=== PATIENT | female | born 1970 | race Caucasian/White ===

== ENCOUNTER 2020-07-06 08:23 | Inpatient (IN) | payer BC ==
[2020-07-07] MEDS ORDERED: cefOXitin 2 GM Vial ONE (06:47)
[2020-07-07] MEDS ORDERED: Ondansetron 4 MG/2 ML SDV ONE (07:53)
[2020-07-07] MEDS ORDERED: Glycopyrrolate 0.2 MG/ML 5 ML MDV ONE (07:53)
[2020-07-07] MEDS ORDERED: Neostigmine Methylsulfate 1 MG/ML 5 ML Syringe ONE (07:53)
[2020-07-07] MEDS ORDERED: Rocuronium 50 MG/5 ML Vial ONE (07:53)
[2020-07-07] MEDS ORDERED: fentaNYL 250 MCG/5 ML SDV ONE ×2 (07:53→12:39)
[2020-07-07] MEDS ORDERED: Dexamethasone 4 MG/ML SDV ONE (07:53)
[2020-07-07] MEDS ORDERED: Propofol 200 MG/20 ML SDV ONE (07:53)
[2020-07-07] MEDS ORDERED: Succinylcholine 200 MG/10 ML MDV ONE (07:53)
[2020-07-07] MEDS ORDERED: Lactated Ringers 1,000 ML ONE (07:56)
[2020-07-07] MEDS ORDERED: Gabapentin 300 MG Cap PO ONE (09:15)
[2020-07-07] MEDS ORDERED: Celecoxib 200 MG Cap PO ONE (09:15)
[2020-07-07] MEDS ORDERED: Acetaminophen 500 MG Tab PO ONE (09:15)
[2020-07-07] MEDS ORDERED: Scopolamine 1.5 MG Transdermal Patch TOP ONE (09:15)
[2020-07-07] MEDS ORDERED: Dextrose 5%-Lactated Ringers 1,000 ML IV SCH (09:30)
[2020-07-07] MEDS ORDERED: cefOXitin 2 GM in Sodium Chloride 0.9% 50 ML IV ONE (11:00)
[2020-07-07] MEDS ORDERED: Magnesium Sulfate 3.5 GM in Sodium Chloride 0.9% 100 ML IV SCH (11:30)
[2020-07-07] MEDS ORDERED: Magnesium Sulfate 5.5 GM in Sodium Chloride 0.9% 250 ML IV ONE (11:30)
[2020-07-07] MEDS ORDERED: Ketamine 500 MG/5 ML MDV IV SCH (11:30)
[2020-07-07] MEDS ORDERED: Ketamine 50 MG in Sodium Chloride 0.9% 49.5 ML IV SCH (11:30)
[2020-07-07] MEDS ORDERED: Labetalol 20 MG/4 ML Syringe ONE (13:27)
[2020-07-07] MEDS ORDERED: Ondansetron 4 MG/2 ML SDV IVPUSH ONE (14:31)
[2020-07-07] MEDS: Dextrose 5%-Lactated Ringers 1,000 ML IV SCH ×2 (16:15→23:21)
[2020-07-07] MEDS ORDERED: ALPRAZolam 0.5 MG Tab PO PRN (16:20)
[2020-07-07] MEDS ORDERED: Calcium Gluconate 10% 1 GM/10 ML SDV IVPUSH PRN (17:00)
[2020-07-07] MEDS ORDERED: Acetaminophen 500 MG Tab PO PRN (17:00)
[2020-07-07] MEDS ORDERED: HYDROmorphone 1 MG/ML Syringe IV PRN (17:00)
[2020-07-07] MEDS ORDERED: oxyCODONE 5 MG Tab PO PRN (17:00)
[2020-07-07] MEDS ORDERED: HYDROmorphone 0.5 MG/0.5 ML Syringe IVPUSH PRN (17:00)
[2020-07-07] MEDS ORDERED: diphenhydrAMINE 50 MG/ML SDV IVPUSH PRN (17:00)
[2020-07-07] MEDS ORDERED: Labetalol 20 MG/4 ML Syringe IVPUSH PRN (17:00)
[2020-07-07] MEDS: Ondansetron 4 MG/2 ML SDV IVPUSH PRN (17:27)
[2020-07-07] MEDS: cefOXitin 2 GM in Sodium Chloride 0.9% 50 ML IV SCH ×2 (17:34→23:19)
[2020-07-07] MEDS: MVI, Adult with Vitamin K 10 ML, Thiamine 200 MG, Chromium/Copper/Mang/Selen/Zn 1 ML in... IV SCH ×4 (17:35)
[2020-07-07] MEDS ORDERED: Pantoprazole 40 MG Vial IVPUSH SCH (18:00)
[2020-07-07] MEDS: Metoclopramide 10 MG/2 ML SDV IVPUSH PRN (20:21)
[2020-07-07] MEDS: Acetaminophen 500 MG Tab PO SCH (20:25)
[2020-07-07] MEDS: Heparin Sodium 5,000 Units/ML Vial SUBCUT SCH (20:25)
[2020-07-07] MEDS: Gabapentin 300 MG Cap PO SCH (20:25)
[2020-07-07] MEDS: Cyclobenzaprine 10 MG Tab PO PRN (23:19)
[2020-07-08] MEDS: Acetaminophen 500 MG Tab PO SCH ×3 (04:07→20:17)
[2020-07-08] MEDS: Ondansetron 4 MG/2 ML SDV IVPUSH PRN ×2 (04:13→20:25)
[2020-07-08] MEDS: Dextrose 5%-Lactated Ringers 1,000 ML IV SCH (05:55)
[2020-07-08] MEDS: cefOXitin 2 GM in Sodium Chloride 0.9% 50 ML IV SCH ×3 (05:55→17:16)
[2020-07-08] MEDS ORDERED: hydrOXYzine HCl 25 MG Tab PO PRN (06:53)
[2020-07-08] MEDS ORDERED: Dextrose 5%-Lactated Ringers 1,000 ML IV SCH (07:00)
[2020-07-08] MEDS: Heparin Sodium 5,000 Units/ML Vial SUBCUT SCH ×2 (07:26→20:17)
[2020-07-08] MEDS: Celecoxib 200 MG Cap PO SCH ×2 (08:48→20:16)
[2020-07-08] MEDS: Lisinopril 20 MG Tab PO SCH (08:48)
[2020-07-08] MEDS: Fluconazole 150 MG Tab PO SCH (08:51)
[2020-07-08] MEDS: SCOPOLAMINE PATCH CHECK TOP SCH (08:51)
[2020-07-08] MEDS: hydrOXYzine HCL 100 MG/2 ML SDV IM PRN (09:15)
--- NOTE | 2020-07-08 09:45 | CR ---
[facility] HISTORY: Postbariatric surgery FINDINGS: Patient swallowed water-soluble contrast. Upright views of the abdomen show no evidence of extravasation or obstruction. There is a surgical drain in the left upper quadrant. IMPRESSION: Status post bariatric surgery No extravasation or obstruction seen
--- NOTE | 2020-07-08 09:51 | PN ---
DATE OF SERVICE: 07/08/2020 SUBJECTIVE: Mela is postoperative day #1 from a Marlene-en-Y gastric bypass surgery. Upper GI showed some pooling of blood at the anastomosis, otherwise, was negative. She has had two episodes of nausea during the night, was given Zofran and Reglan. Currently, she is sitting up in the chair. States pain is controlled. Has been ambulating, voiding without difficulty. Vital signs have been stable. REVIEW OF SYSTEMS: Remainder of review of systems negative for any pertinent positives and negatives. OBJECTIVE: GENERAL: Mela is a pleasant 49-year-old female. VITAL SIGNS: TPR at 0400; 97.7, 86, 16, and blood pressure 124/63. HEENT: Negative. NECK: Supple. HEART: Regular rate and rhythm. LUNGS: Clear. ABDOMEN: Dressings dry and intact. Abdominal binder is on. MANOJ drain intact draining a light pink drainage of 90 mL in the past 24 hours. EXTREMITIES: Without peripheral edema. ASSESSMENT: 1. Laparoscopic Marlene-en-Y gastric bypass surgery. 2. Liver biopsy. 3. Diaphragmatic hernia. 4. Excision of mediastinal lipoma. 5. Partial gastrectomy. Date of procedure 07/08/2020. Surgeon: Kennedy Suárez MD. PLAN: 1. Decrease IV to 100 mL/hour. 2. Instructed to sit up with eating to avoid adequate emptying. 3. Step 2 gastric bypass diet with no cereal. 4. May shower. 5. Atarax 25 mg every 4 hours p.r.n. pain in addition to the energy protocol. 6. Zofran ODT 4 mg every 4 hours sublingual p.r.n. nausea. 7. Communication order written 3 med cups one q. 20 minutes and record at bedside, to assure adequate fluid intake. 8. Continue ambulation and use of incentive spirometer. 9. We will evaluate p.r.n. or in a.m. Pao Blanchard PA-C /[id number]
[2020-07-08] MEDS: Cyclobenzaprine 10 MG Tab PO PRN (11:46)
[2020-07-08] MEDS: MVI, Adult with Vitamin K 10 ML, Thiamine 200 MG, Chromium/Copper/Mang/Selen/Zn 1 ML in... IV SCH ×4 (16:46)
[2020-07-08] MEDS: Pantoprazole 40 MG Delayed-Release Granules 1 Packet PO SCH (16:49)
[2020-07-08] MEDS: Gabapentin 300 MG Cap PO SCH (20:16)
[2020-07-09] MEDS: Acetaminophen 500 MG Tab PO SCH ×3 (05:06→20:49)
[2020-07-09] MEDS ORDERED: Dextrose 5%-Lactated Ringers 1,000 ML IV SCH (08:00)
[2020-07-09] MEDS ORDERED: Cyanocobalamin (Vitamin B12) 1,000 MCG/ML SDV IM ONE (09:00)
[2020-07-09] MEDS: hydrOXYzine HCL 100 MG/2 ML SDV IM PRN (09:18)
[2020-07-09] MEDS: Cyclobenzaprine 10 MG Tab PO PRN (09:18)
[2020-07-09] MEDS: Ondansetron 4 MG Tab.DIS PO PRN ×2 (09:18→21:12)
[2020-07-09] MEDS: Heparin Sodium 5,000 Units/ML Vial SUBCUT SCH ×2 (09:18→20:49)
[2020-07-09] MEDS: Fluconazole 150 MG Tab PO SCH (09:19)
[2020-07-09] MEDS: Celecoxib 200 MG Cap PO SCH ×3 (09:19→20:49)
[2020-07-09] MEDS: SCOPOLAMINE PATCH CHECK TOP SCH (09:19)
[2020-07-09] MEDS: Lisinopril 20 MG Tab PO SCH (09:20)
[2020-07-09] MEDS: Metoclopramide 10 MG/2 ML SDV IVPUSH PRN (11:36)
[2020-07-09] MEDS ORDERED: Ketorolac 60 MG/2 ML SDV IM ONE (11:44)
[2020-07-09] MEDS: Pantoprazole 40 MG Delayed-Release Granules 1 Packet PO SCH (15:46)
[2020-07-09] MEDS ORDERED: Ketorolac 60 MG/2 ML SDV IM PRN (18:00)
[2020-07-09] MEDS: Gabapentin 300 MG Cap PO SCH (20:49)
[2020-07-10] MEDS: Acetaminophen 500 MG Tab PO SCH (03:25)
[2020-07-10] MEDS: Ondansetron 4 MG Tab.DIS PO PRN (08:31)
[2020-07-10] MEDS: Celecoxib 200 MG Cap PO SCH (08:33)
[2020-07-10] MEDS: Lisinopril 20 MG Tab PO SCH (08:33)
[2020-07-10] MEDS: Heparin Sodium 5,000 Units/ML Vial SUBCUT SCH (08:36)
[2020-07-10] MEDS ORDERED: Scopolamine 1.5 MG Transdermal Patch TOP ONE (09:00)
[2020-07-10] MEDS ORDERED: Magnesium Hydroxide 400 MG/5 ML Susp 30 ML Cup PO ONE (09:00)
--- NOTE | 2020-07-13 07:50 | PN ---
DATE OF SERVICE: 07/09/2020 The patient has been afebrile with stable vital signs. Oral intake is still a little bit difficult, but it is improving. We will keep her around one more day increased amount of protein. We will try 3 different flavors so she can pick and choose which she wants to purchase following discharge. I will back her down on the IV rate somewhat and maximize activity and work with pulmonary toilet. Kennedy Suárez MD /[id number]
--- NOTE | 2020-07-13 08:53 | DISCH ---
FINAL DIAGNOSES: 1. Morbid obesity. 2. Marked hepatomegaly. 3. Paraesophageal diaphragmatic hernia. 4. Mediastinal lipoma. 5. Marlene-en-Y gastric bypass with stomach becoming ischemic after formation of gastric pouch. SECONDARY DIAGNOSES: 1. Anxiety. 2. Hypertension. 3. History of interstitial cystitis. 4. Nephrolithiasis. 5. History of panic disorder. OPERATIVE PROCEDURES: Done on of 07/07; diagnostic laparoscopy with; 1. Laparoscopic Marlene-en-Y gastric bypass along with gastroenterostomy. 2. Jamel-Cut needle liver biopsy. 3. Repair of paraesophageal diaphragmatic hernia. 4. Excision of mediastinal lipoma. 5. Partial gastrectomy. SUMMARY: This is a 49-year-old female presenting with longstanding morbid obesity, increasing significant associated comorbidities. Had preop evaluation and discussion, she wished to proceed with a gastric bypass procedure. It was done on the date of admission. Her gastrojejunostomy appeared to be somewhat tight on 1st postoperative day, but she has been able to maintain adequate oral intake, maintaining a liquid diet which should be on even without being tight. At this point, pain was controlled with gabapentin and Celebrex only, not requiring Tylenol. She will be discharged home with followup with Pao Blanchard at [facility] on 07/17/2020 at 10:00 a.m.. She will be continuing her home medications which included gabapentin and Celebrex preoperatively. /[id number]
--- NOTE | 2020-07-16 08:26 | OR ---
DATE OF PROCEDURE: 07/07/2020 SURGEON: Kennedy Suárez MD PREOPERATIVE DIAGNOSIS: Morbid obesity. POSTOPERATIVE DIAGNOSES: 1. Morbid obesity. 2. Marked hepatomegaly. 3. Paraesophageal diaphragmatic hernia. 4. Mediastinal lipoma. 5. Area of bypassed stomach rendered ischemic status post formation of gastric pouch. OPERATIVE PROCEDURES: Diagnostic laparoscopy with: 1. Laparoscopic Marlene-en-Y gastric bypass along with gastroenterostomy (18426). 2. Jamel-Cut needle liver biopsy (26397). 3. Repair of paraesophageal diaphragmatic hernia (02460). 4. Excision of mediastinal lipoma (97112). 5. Partial gastrectomy (27285). ANESTHESIA: General. BIT AND SHANK DEPARTMENT SUPERVISOR: Pao Blanchard PA-C INDICATIONS FOR PROCEDURE: This is a 49-year-old female presenting with longstanding morbid obesity and increasingly significant comorbidities. After preoperative evaluation and discussion, she wished to proceed with a gastric bypass procedure. Potential risks of the procedure including bleeding, infection, leaks from various GI tract closures, problems with bowel obstruction over time, as well as possibility of cardiopulmonary, septic, or hemorrhagic complications leading to were discussed, and the patient wishes to proceed. DETAILS OF PROCEDURE: The patient was taken to the operating room. After general endotracheal anesthesia was administered, placed in a lithotomy position and the abdomen prepped and draped. 15 cm inferior and 5 cm left of the xiphoid process, a transverse incision was made and peritoneal cavity entered under direct vision with an Optiview trocar, inflated to 15 mmHg pressure of CO2. Laparoscope was reinserted. No underlying trocar insertion site injuries were seen. Bilateral transverse abdominis plane blocks were placed following which 5 additional trocars were placed across the upper and mid abdomen. The patient was noted to have marked hepatomegaly with the liver being roughly 2 to 3 times normal size and grossly fat infiltrated. Jamel-Cut needle biopsy obtained from left lobe of liver. Minimal bleeding from the biopsy sites was controlled with electrocautery. The omentum was then divided in the midline up to the level of the transverse colon. This allowed identification of the small bowel to the ligament of Treitz. Small bowel was then traced out 100 cm distal to that point where it was divided transversely with a BETSEY stapler. Small bowel was then traced out an additional 150 cm where the [id number] enteroenterostomy was accomplished with an internal firing of the Endo BETSEY 60 mm stapler. Common opening was then closed transversely with the same stapler. Angles anastomosed and mesenteric defect approximated with some 0 Ethibond stitch along with some fibrin sealant. The Marlene limb was then from the mesentery for a few centimeters, which allowed an antecolic position of the Marlene limb up to the level of esophagogastric junction without tension. The liver was then retracted anteriorly. The patient was noted to have moderate-sized paraesophageal diaphragmatic hernia with prolapse of perigastric fat and gastric fundus in a plane anterior to the course of the esophagus. This was then reduced. The peritoneum overlying incised and reflected downward. During the course of dissection, a mediastinal lipoma was encountered, and to facilitate more adequate crural repair, this was resected and crural repair was accomplished with 0 Ethibond sutures, reinforced with PTFE pledgets. The gastrointestinal balloon catheter was inflated to 15 mL and pulled up snugly against EG junction. This gastric wall over the apex of the balloon was then marked with electrocautery. Balloon catheter was deflated and pulled up from the esophagus. The lesser omental tissue adjacent to the gastric cardia was then incised allowing dissection behind the stomach at that level, and at the level of the cauterize myra, pouch was initiated with transverse firing of the BETSEY stapler. The pouch was then completed with additional firings of BETSEY stapler up to and through the angle of His. Upon completion of the pouch, the upper aspect of the bypassed stomach was noted to be somewhat ischemic appearance, and this was resected just to avoid any complications in that area. The anvil of a 25 mm EEA stapler was then attached to Power sump type tube. The latter was brought down through the mouth and taken out a small opening in the gastric pouch, allowing the anvil likewise to be pulled down to within the gastric pouch. The divided end of the Marlene limb was then opened and main body of the EEA stapler passed several centimeters into the lumen of small bowel and brought up the anvil, united with it, thus creating the gastrojejunostomy. Upon removal of stapler, double donuts of mucosa were noted within it, and small bowel was closed off with a vascular staple line. Gastrojejunostomy was reinforced with some 3-0 Vicryl seromuscular stitch along with fibrin sealant. A leak test was accomplished with injection of 120 mL of air in the gastric pouch while it was submerged with a cefoxitin-containing saline solution. No leaks were identified. A single Graham- Olivas drain was taken out through the left lateral trocar site and positioned adjacent to the gastric cardia and from there up into the splenic fossa. The trocars were sequentially removed and the peritoneal cavity deflated. Incisions were closed with some 4-0 Vicryl skin stitch, which was also used to fix the drain. The patient was taken to the recovery room in satisfactory condition. Physician physical therapy assistant, Pao Blanchard, played an essential role in assisting in this case, helping to position the patient, retract structures as needed, as well as suturing and cutting sutures when indicated. Her presence improved patient safety and decreased the operative time. Kennedy Suárez MD /[id number]
== END 2020-07-10 10:40 | disposition home or self-care (01) | DRG 403 ==
LOC: JP.SDSSCHI 07-07 08:38 → JP.SDS 07-07 08:38 → EDSTATUS 07-07 09:45 → JP.MS 07-07 12:35
PROVIDERS: ADMIT Surgery; ATTEND Surgery
PROC: 0D164ZA Bypass Stomach to Jejunum, Percutaneous Endoscopic Approach (ICD-10-PCS; principal; 2020-07-08)
PROC: 0FB24ZX Excision of Left Lobe Liver, Percutaneous Endoscopic Approach, Diagnostic (ICD-10-PCS; 2020-07-08)
PROC: 0BQT4ZZ Repair Diaphragm, Percutaneous Endoscopic Approach (ICD-10-PCS; 2020-07-08)
PROC: 0JB63ZZ Excision of Chest Subcutaneous Tissue and Fascia, Percutaneous Approach (ICD-10-PCS; 2020-07-08)
PROC: 0DB64ZZ Excision of Stomach, Percutaneous Endoscopic Approach (ICD-10-PCS; 2020-07-08)
DX: E66.01 Morbid (severe) obesity due to excess calories (principal); N76.1 Subacute and chronic vaginitis; F41.9 Anxiety disorder, unspecified; I10 Essential (primary) hypertension; R16.0 Hepatomegaly, not elsewhere classified; K44.9 Diaphragmatic hernia without obstruction or gangrene; D17.4 Benign lipomatous neoplasm of intrathoracic organs; E78.5 Hyperlipidemia, unspecified; Z98.84 Bariatric surgery status; Z98.51 Tubal ligation status; Z79.899 Other long term (current) drug therapy; Z88.8 Allergy status to other drugs, medicaments and biological substances; N30.21 Other chronic cystitis with hematuria; F33.9 Major depressive disorder, recurrent, unspecified; G24.3 Spasmodic torticollis; Z68.41 Body mass index [BMI] 40.0-44.9, adult
CPT/HCPCS: 36415; 74240; 74240-26; 80053; 83735; 84100; 85027; 86850; 86900; 86901; 88304; 88305; 88307; 88313; 94762; A9270-GY; C9113; J0171; J0330; J0694; J1100; J1170; J1644; J1885; J2405; J2704; J2710; J2765; J2795; J3010; J3410; J3411; J3420; J3475; J3490; J7050; J7120; J7121

== ENCOUNTER 2020-08-13 07:24 | Day surgery (SDC) | payer BC ==
[2020-08-13] MEDS ORDERED: Propofol 200 MG/20 ML SDV ONE (07:43)
[2020-08-13] MEDS ORDERED: fentaNYL 100 MCG/2 ML SDV ONE (07:43)
[2020-08-13] MEDS ORDERED: Midazolam 1 MG/ML 2 ML SDV ONE (07:43)
[2020-08-13] MEDS ORDERED: Cyanocobalamin (Vitamin B12) 1,000 MCG/ML SDV IM ONE (07:45)
[2020-08-13] MEDS ORDERED: Lactated Ringers 1,000 ML IV SCH (08:30)
[2020-08-13] MEDS ORDERED: MVI, Adult with Vitamin K 10 ML, Thiamine 200 MG, Zinc/Copper/Manganese/Selenium 1 ML i... IV ONE ×4 (08:30)
[2020-08-13] MEDS ORDERED: Glycopyrrolate 0.2 MG/ML 2 ML SDV IVPUSH ONE (09:00)
[2020-08-13] MEDS ORDERED: THIAMINE IV ONE (09:30)
[2020-08-13] MEDS ORDERED: LACTATED RINGERS IV ONE (09:30)
[2020-08-13] MEDS ORDERED: SELENIUM IV ONE (09:30)
[2020-08-13] MEDS ORDERED: MANGANESE IV ONE (09:30)
[2020-08-13] MEDS ORDERED: COPPER IV ONE (09:30)
[2020-08-13] MEDS ORDERED: ZINC IV ONE (09:30)
[2020-08-13] MEDS ORDERED: Ondansetron 4 MG/2 ML SDV ONE (09:32)
[2020-08-13] MEDS ORDERED: Pantoprazole 40 MG Vial IVPUSH ONE (10:00)
--- NOTE | 2020-08-28 16:11 | OR ---
DATE OF PROCEDURE: 08/13/2020 SURGEON: Kennedy Suárez MD PREOPERATIVE DIAGNOSIS: Probable strictured gastrojejunostomy. POSTOPERATIVE DIAGNOSIS: Moderately tight stricture at gastrojejunostomy. OPERATIVE PROCEDURE: Upper GI endoscopy with dilation of gastrojejunostomy (56205). ANESTHESIA: IV sedation. INDICATION FOR PROCEDURE: The patient is status post Marlene-en-Y gastric bypass on 07/06/2020, presenting with some symptoms suggestive of stricturing at her gastrojejunostomy. Plan is to proceed with upper GI endoscopy with dilation as indicated. Potential risks including bleeding and perforation were discussed, and the patient wishes to proceed. DETAILS OF PROCEDURE: The patient was taken to the operating room and placed in a left lateral decubitus position. IV sedation was administered, after which the upper GI endoscope was passed orally through the length of esophagus and into the gastric pouch. At that level, the patient was noted to have moderately tight stricture of the gastrojejunostomy with estimated diameter of around 8 mm. Bard gastrointestinal catheter was then centered across the anastomosis and inflated to 36-Sinhala size. This was held in position for 1 minute, after which balloon catheter was deflated and withdrawn. Scope was easily passed through the anastomosis at this point and no complications were evident. Eventually the scope was withdrawn and the procedure was then concluded. The patient has fair bit of inflammation in the mucosa of the gastric pouch and gastrojejunostomy. Given this, she will be given Protonix 40 mg IV in the recovery room and then given a 30-day course of oral Protonix. She will be following up with Pao Blanchard in roughly 1 month and is instructed to call should she develop symptoms of recurrent stricturing prior to that appointment. Kennedy Suárez MD /[id number]
== END 2020-08-13 11:45 | disposition home or self-care (01) ==
LOC: JP.SDS 07:24
PROVIDERS: ATTEND Surgery
DX: K91.89 Other postprocedural complications and disorders of digestive system (principal); K31.89 Other diseases of stomach and duodenum; I10 Essential (primary) hypertension; E78.5 Hyperlipidemia, unspecified; E66.01 Morbid (severe) obesity due to excess calories; Z01.812 Encounter for preprocedural laboratory examination; Z20.828 Contact with and (suspected) exposure to other viral communicable diseases; Z98.84 Bariatric surgery status; Z68.36 Body mass index [BMI] 36.0-36.9, adult
CPT/HCPCS: 43245; 87635; C9113; J2250; J2405; J2704; J3010; J3411; J3420; J3490; J7120; U0002

== ENCOUNTER 2020-10-23 09:35 | Day surgery (SDC) | payer BC ==
[~2020-10-23 09:35] MED LIST: MVI, Adult with Vitamin K 10 ML, Thiamine 200 MG, Chromium/Copper/Mang/Selen/Zn 1 ML in... IV ONE
[2020-10-23] MEDS ORDERED: Lactated Ringers 1,000 ML IV SCH (10:00)
[2020-10-23] MEDS ORDERED: Cyanocobalamin (Vitamin B12) 1,000 MCG/ML SDV IM ONE (10:00)
[2020-10-23] MEDS ORDERED: Glycopyrrolate 0.2 MG/ML 2 ML SDV IVPUSH ONE (10:00)
[2020-10-23] MEDS ORDERED: fentaNYL 100 MCG/2 ML SDV ONE (10:41)
[2020-10-23] MEDS ORDERED: Midazolam 1 MG/ML 2 ML SDV ONE (10:41)
[2020-10-23] MEDS ORDERED: Propofol 200 MG/20 ML SDV ONE (10:41)
[2020-10-23] MEDS ORDERED: MVI, Adult with Vitamin K 10 ML, Thiamine 200 MG, Chromium/Copper/Mang/Selen/Zn 1 ML in... IV ONE ×4 (11:00)
--- NOTE | 2020-11-03 12:05 | OR ---
DATE OF PROCEDURE: 10/23/2020 SURGEON: Kennedy Suárez MD PREOPERATIVE DIAGNOSIS: Probable stricture at the gastrojejunostomy. POSTOPERATIVE DIAGNOSIS: Minimal stricture at gastrojejunostomy. OPERATIVE PROCEDURE: Upper GI endoscopy with dilation of gastrojejunostomy (17237). ANESTHESIA: IV sedation. INDICATION FOR PROCEDURE: The patient is status post Marlene-en-Y gastric bypass on 07/07/2020. She underwent previous dilation of gastrojejunostomy on 08/13/2020, now presenting with some dysphagia referable to the area of the gastrojejunostomy suspicious for a stricture at that level. Plan is to proceed with upper GI endoscopy with dilation as indicated. Potential risks including bleeding and perforation were discussed, and the patient wishes to proceed. DETAILS OF PROCEDURE: The patient was taken to the operating room and placed in a left lateral decubitus position. IV sedation was administered, after which the upper GI endoscope was passed orally through the length of the esophagus and into the gastric pouch, and from there through the gastrojejunostomy. Roughly 20 cm into the lumen, where patient was noted to have minimal inflammation at the gastrojejunostomy gastric pouch at this point with only very minimal stricture with the scope being easily passed through the anastomosis. Bard gastrointestinal catheter was then centered across the anastomosis, inflated with 54- Occitan size. This was held in position for 1 minute, after which balloon catheter was deflated and withdrawn. There was a small amount of heme around the dilation point indicating a small amount of dilation had occurred, but otherwise there were no evident complications and the procedure was then concluded. The patient was taken to the recovery room in satisfactory condition. Kennedy Suárez MD /[id number]
== END 2020-10-23 14:06 | disposition home or self-care (01) ==
LOC: JP.SDS 09:35
PROVIDERS: ATTEND Surgery
DX: K91.89 Other postprocedural complications and disorders of digestive system (principal); K31.89 Other diseases of stomach and duodenum; R13.10 Dysphagia, unspecified; E66.9 Obesity, unspecified; Z68.31 Body mass index [BMI] 31.0-31.9, adult; I10 Essential (primary) hypertension; Z98.84 Bariatric surgery status
CPT/HCPCS: J2250; J2704; J3010; J3411; J3420; J3490; J7120

== ENCOUNTER 2020-11-22 09:23 | Day surgery (SDC) | payer BC ==
[2020-11-22] MEDS ORDERED: Lactated Ringers 1,000 ML IV ONE (10:00)
[2020-11-22] MEDS ORDERED: fentaNYL 100 MCG/2 ML SDV ONE ×2 (10:12→11:13)
[2020-11-22] MEDS ORDERED: Propofol 200 MG/20 ML SDV ONE ×2 (10:12→11:13)
[2020-11-22 10:13] LABS: CORONAVIRUS COVID-19 NAA NEGATIVE (NEGATIVE)
[2020-11-22] MEDS ORDERED: Midazolam 1 MG/ML 2 ML SDV ONE ×2 (10:14→11:13)
[2020-11-22] MEDS ORDERED: Glycopyrrolate 0.2 MG/ML 2 ML SDV IV ONE (10:30)
[2020-11-22] MEDS ORDERED: Cyanocobalamin (Vitamin B12) 1,000 MCG/ML SDV IM ONE (10:30)
[2020-11-22] MEDS ORDERED: MVI, Adult with Vitamin K 10 ML, Zinc/Copper/Manganese/Selenium 1 ML, Thiamine 200 MG i... IV ONE ×4 (11:00)
--- NOTE | 2020-11-23 11:12 | OR ---
DATE OF PROCEDURE: 11/22/2020 SURGEON: Luther Pratt MD PROCEDURE: Esophagogastroduodenoscopy. FINDINGS: 1. Normal Marlene-en-Y. 2. No evidence of foreign material. 3. No narrowing, stricturing, ulceration, inflammation, or retained food products. PREOPERATIVE DIAGNOSIS: Dysphagia. POSTOPERATIVE DIAGNOSIS: Dysphagia. RISKS: Risks, benefits, alternatives, and limitations including but not limited to infection bleeding, perforation, and false positives and false negatives were all explained and the patient wished to proceed. PROCEDURE IN DETAIL: The patient was placed in left lateral decubitus position. The EGD scope was introduced atraumatically into the Marlene-en-Y limb. No evidence of abnormalities noted. The pouch was appropriately sized. There was no stricturing or narrowing at the gastrojejunal anastomosis or the gastroesophageal junction. There was also an ulceration. No old or new blood. No retained food products. The esophagus was normal. The patient tolerated the procedure well. Luther Pratt MD /[id number]
== END 2020-11-22 13:31 | disposition home or self-care (01) ==
LOC: JP.SDSSCHI 09:23 → JP.SDS 09:23 → UNDOADMOB 09:24 → JP.MS 09:24 → JP.SDS 13:31 → UNDODISOB 13:31 → EDSTATUS 11-23 12:44
PROVIDERS: ATTEND Surgery
DX: R13.10 Dysphagia, unspecified (principal); I10 Essential (primary) hypertension; Z98.84 Bariatric surgery status; Z98.0 Intestinal bypass and anastomosis status; Z01.812 Encounter for preprocedural laboratory examination; Z20.822 Contact with and (suspected) exposure to COVID-19
CPT/HCPCS: 0241U; 43235; J2250; J2704; J3010; J3411; J3420; J7120